=== PATIENT | male | born 2000 | race Caucasian/White ===

== ENCOUNTER 2023-10-16 09:01 | Emergency (ER) | payer SELFPAY ==
[2023-10-16] MEDS: Tetracaine HCl/PF 0.5% 4 ML Bottle EYELF ONE (09:43)
[2023-10-16] MEDS: Fluorescein 1 MG Ophth Strip EYEBOTH ONE (09:43)
[2023-10-16] MEDS: Ibuprofen 600 MG Tab PO ONE (10:06)
[2023-10-16] MEDS: Erythromycin Base 0.5% Ophth Oint 1 GM Tube EYELF ONE (10:06)
== END 2023-10-16 10:10 | disposition home or self-care (01) ==
LOC: MW.ED 09:01
DX: T15.02XA Foreign body in cornea, left eye, initial encounter (principal); Z88.0 Allergy status to penicillin; Z75.8 Other problems related to medical facilities and other health care; W44.8XXA Other foreign body entering into or through a natural orifice, initial encounter; Y99.0 Civilian activity done for income or pay
CPT/HCPCS: 65222; 99283; A9270; J3490